=== PATIENT | female | born 1940 | race Caucasian/White ===

== ENCOUNTER 2020-06-05 11:23 | Inpatient (IN) | payer MEDICARE ==
[~2020-06-05] VITALS: Ht 157.5 cm; Wt 64.3 kg
[2020-06-05] MEDS ORDERED: CALTRATE-600 W600 MG PO (12:27)
[2020-06-05] MEDS ORDERED: TYLENOL 500MG500 MG PO (12:27)
[2020-06-05] MEDS ORDERED: ONE-A-DAY ESSE1 EACH PO (12:27)
[2020-06-05] MEDS ORDERED: NATURE'S BLE1000 MCG (12:28)
[2020-06-05] MEDS ORDERED: NORVASC 5MG5 MG/TAB PO (12:28)
[2020-06-05] MEDS ORDERED: GLUCOPHAGE1000 MG PO (12:29)
[2020-06-05] MEDS ORDERED: ZOCOR 20MG20 MG (12:29)
[2020-06-05] MEDS ORDERED: ZESTORETIC 12.51 TA1 PO (12:30)
[2020-06-05] MEDS ORDERED: ATIVAN 0.50.5 MG/TAB (12:31)
[2020-06-05] MEDS ORDERED: ACTOS30 MG PO (12:31)
[2020-06-05] MEDS ORDERED: BETAPACE 80MG80 MG PO (12:31)
[2020-06-05] MEDS ORDERED: ELIQUIS 5MG PO (12:32)
[2020-06-05] MEDS ORDERED: EFFEXOR 75M75 MG/TAB PO (12:32)
[2020-06-05] MEDS ORDERED: AMARYL 2MG T2 MG/TAB PO (12:33)
[2020-06-05 12:52] LABS: INR 1.7 (0.8-3.0); PROTHROMBIN TIME 18.6 SECONDS (9.7-12.8)
[2020-06-05 12:53] LABS: ALANINE AMINOTRANSFERASE 12 U/L (4-34); ALKALINE PHOSPHATASE 59 U/L (50-136); ANION GAP 9 mmol/L (7-16); AST,SGOT 31 U/L (15-37); BILIRUBIN,TOTAL 0.4 mg/dL (0.0-1.0); BLOOD UREA NITROGEN 18 mg/dL (7-17); C-REACTIVE PROTEIN 1.4 mg/dL (0.0-0.9); CALCIUM 9.3 mg/dL (8.4-10.2); CARBON DIOXIDE 26 mmol/L (22-30); CHLORIDE 93 mmol/L (98-107); CREATININE, serum 0.99 (0.52-1.25); GLUCOSE 139 mg/dL (74-106); LIPASE 33 U/L (23-300); POTASSIUM 3.7 mmol/L (3.4-5.0); SODIUM 128 mmol/L (137-145); TOTAL PROTEIN 6.4 gm/dL (6.4-8.2)
[2020-06-05 12:59] LABS: BASO % 0.4 % (0.0-2.0); EOS # 0.2 (0.0-0.7); EOS % 4.2 % (0-4.0); GRAN # 3.1 (1.4-6.5); GRAN % 60.3 % (42.2-75.2); LYMPH # 1.2 (1.2-3.4); MEAN CELL VOLUME 104 fl (80.0-100.0); MEAN CORPUSCULAR HGB CONC 34 g/dl (33.0-37.0); MEAN PLATELET VOLUME 10.4 fl (7.4-10.4); MONO # 0.6 (0.1-0.6); MONO % 10.9 % (1.7-9.3); PLATELET COUNT 120 K/mm3 (130-400); RED BLOOD COUNT 2.52 M/mm3 (4.10-5.30); REDCELL DISTRIBUTION WIDTH-CV 12.4 % (11.5-14.5)
[2020-06-05 13:02] LABS: HEMATOCRIT 26.1 % (37.0-47.0); HEMOGLOBIN 8.8 g/dl (12.5-16.0); MEAN CORPUSCULAR HEMOGLOBIN 35 pg (27.0-31.0)
[2020-06-05 13:05] LABS: TROPONIN-I < 0.012 ng/mL (0.000-0.035)
[2020-06-05 14:00] LABS: COLLECTION METHOD CLEAN CATCH
[2020-06-05 14:11] LABS: MUCOUS Present /lpf; PH 5 (5-8); SQUAMOUS EPITHELIAL 0-2 /hpf; URINE APPEARANCE Hazy; URINE BACTERIA Rare /hpf; URINE BILIRUBIN Negative (NEGATIVE); URINE BLOOD Negative (NEGATIVE); URINE COLOR Yellow; URINE GLUCOSE Negative (NEGATIVE); URINE KETONE Negative (NEGATIVE); URINE LEUKOCYTE ESTERASE 2+ (NEGATIVE); URINE NITRATE Negative (NEGATIVE); URINE PROTEIN(semi-quant) Negative (NEGATIVE); URINE RBC 0-2 /hpf; URINE UROBILINOGEN Negative (NEGATIVE)
[2020-06-05] MEDS ORDERED: ATROVENT I0.2 MG/1 M IH (14:56)
[2020-06-05] MEDS ORDERED: ALBUTEROL0.83 MG/ML IH (14:57)
[2020-06-05] MEDS ORDERED: PERFOROMIS20 MCG/2 M IH (14:57)
[2020-06-05] MEDS ORDERED: PULMICORT0.5 MG/2 M IH (14:58)
--- NOTE | 2020-06-05 17:30 | NUR ---
pt arrived to floor via stretcher. pt is dizzy upon standing, made high fall risk, pt pleasant, aox4 but bad historian. any health question she does not know she says "call my daughter and ask, she'll know". reports new cancer but no chemo in past 7 days and pt cannot say what type of cancer she has. pt has meds in room and says daughter will be her visitor and will take them home. bed alarm set in bed. no other needs.
[2020-06-05 18:10] VITALS: BP 109/33; PULSE 74
[2020-06-05 18:12] VITALS: BP 128/78; PULSE 80
[2020-06-05 18:16] VITALS: BP 119/45; PULSE 91; TEMP 97.7
[2020-06-05 21:00] VITALS: BP 135/42; PULSE 78; TEMP 98.2
--- NOTE | 2020-06-05 21:00 | NUR ---
Patient assessed at this time. Alert and oriented x 4, and able to make needs known. Denies having pain and discomfort at this time. Port to left chest with fluids running per orders. Site is without redness, warmth, swelling, and pain. Dressing to area CDI. Denie having SOB and dyspnea. LS CTA in upper lobes, diminished in lower. HRR. Telemetry in place. Capillary refill less than 3 seconds. Non-tenting skin turgor. BSAx4. Abdomen soft and non-tender. No edema. One person contact assist with transferring to bedside commode. Gait/balance unsteady, but denies dizzyness. Urine clear and yellow. Voices no questions, needs, or concerns at this time. Resting in bed with call light within reach. High fall risk precautions in place.
[2020-06-05 23:36] LABS: FOLATE (FOLIC ACID) >20.0 ng/mL (7.0-31.4)
[2020-06-05 23:51] VITALS: BP 137/49; PULSE 82; TEMP 97.7
[2020-06-06 03:20] VITALS: BP 139/49; PULSE 94; TEMP 97.8
--- NOTE | 2020-06-06 06:40 | NUR ---
Patient has been resting in bed with call light within reach. Continues to wear oxygen at 3 L/min via NC. Patient complained of headache and was given PRN APAP. Voices no questions, needs, or concerns at this time. Resting in bed with call light within reach.
--- NOTE | 2020-06-06 07:00 | NUR ---
Report received from IVIS Ramsey. Pt in bed resting, on phone, denies needs, will continue to monitor.
[2020-06-06 07:20] LABS: BASO % 0.3 % (0.0-2.0); GRAN # 3.4 (1.4-6.5); GRAN % 85.2 % (42.2-75.2); LYMPH # 0.4 (1.2-3.4); LYMPH % 9.7 % (20.0-51.0); MEAN CELL VOLUME 102 fl (80.0-100.0); MEAN CORPUSCULAR HGB CONC 34 g/dl (33.0-37.0); MONO # 0.2 (0.1-0.6); MONO % 4.3 % (1.7-9.3); PLATELET COUNT 136 K/mm3 (130-400); RED BLOOD COUNT 2.59 M/mm3 (4.10-5.30); REDCELL DISTRIBUTION WIDTH-CV 12.2 % (11.5-14.5)
[2020-06-06 07:21] LABS: HEMATOCRIT 26.5 % (37.0-47.0); MEAN CORPUSCULAR HEMOGLOBIN 35 pg (27.0-31.0)
[2020-06-06 07:31] LABS: ANION GAP 10 mmol/L (7-16); BLOOD UREA NITROGEN 15 mg/dL (7-17); CALCIUM 8.8 mg/dL (8.4-10.2); CARBON DIOXIDE 22 mmol/L (22-30); CHLORIDE 101 mmol/L (98-107); CREATININE, serum 0.65 (0.52-1.25); GLUCOSE 185 mg/dL (74-106); MAGNESIUM 2.6 mg/dL (1.6-2.3); POTASSIUM 4.8 mmol/L (3.4-5.0); SODIUM 132 mmol/L (137-145)
[2020-06-06 07:37] LABS: TROPONIN-I < 0.012 ng/mL (0.000-0.035)
[2020-06-06 08:26] VITALS: BP 142/54; PULSE 94; TEMP 97.7
--- NOTE | 2020-06-06 09:29 | NUR ---
Pt doing well, is alert and oriented but forgetful at times. Resting in bed, taking PO well, ordered more for breakfast. Itching where tele and EKG stickers were on chest. PAC to CHADD infusing IVF. Denies pain. Will continue to monitor.
--- NOTE | 2020-06-06 10:14 | NUR ---
Initial visit; Per request by family, Manager Technical Services contacted a Analytical Sciences Director to visit [place]. Father Evelio responded with a planned visit this morning.
--- NOTE | 2020-06-06 11:47 | NUR ---
SW met with the patient to discuss discharge plan. The patient lives in [place] with her youngest daughter, Eli. She states that Eli has Down Syndrome and that her family is checking in on her and looking out for her while she is here. Her other daughter, Josefina (ph#[phone], w.ph#[phone]), lives up the hill from her. She reports needing some assistance with getting in and out of the tub. She states that her daughter, Josefina, and a friend/caregiver, Juan, helps her with this. She has a cane, walker, and home oxygen from [facility] The patient's PCP is Dr. Grace Ordonez and she could not recall what pharmacy she gets her meds at. She states that Josefina would know this. The patient does not have advance directives in EMR, but she states that she does have them completed and that her daughter, Josefina, is her DPOA-HC. The patient plans to return home upon discharge. She states that she receives ton of family and friend support. SW discussed home health services. The patient reports that she had home health in the past and did not like it. She states that her friend/caregiver, Juan, does home exercises with her and helps her. SW then contacted the patient's daughter, Josefina, to review d/c plan. Josefina reports that she has no concerns for SW at this time. She states that she has the contact information for home health, political director, and hospice services if they decide they would want or need any of those services. PT/OT have been ordered. SW to continue to follow.
[2020-06-06 12:28] VITALS: BP 144/69; PULSE 92; TEMP 98.3
[2020-06-06 16:49] VITALS: BP 153/52; PULSE 91; TEMP 98.3
[2020-06-06] MEDS ORDERED: DESYREL 50MG50 MG PO (17:58)
[2020-06-06 19:02] VITALS: BP 134/53; PULSE 87; TEMP 98
--- NOTE | 2020-06-06 19:21 | NUR ---
Pt in bed resting, doing well, daughter was at bedside most of day. Resting in bed, denies needs. Reviewed home meds with daughter, report hgivne to nightshift who will resume care.
--- NOTE | 2020-06-06 20:35 | NUR ---
Resting in bed. Assessment complete. Lungs clear. Heart sounds normal. Bowels active x4. Pulses present throughout. No edema noted. PAC infusing without complications. Denies pain. Given atarax for generalized itching. Denies other needs at this time. Call light in reach.
[2020-06-06 23:13] VITALS: BP 144/51; PULSE 88; TEMP 98.1
--- NOTE | 2020-06-06 23:53 | NUR ---
Resting in bed. Denies needs. Call light in reach.
[2020-06-07 03:05] VITALS: BP 144/57; PULSE 92; TEMP 98.1
--- NOTE | 2020-06-07 03:19 | NUR ---
Resting in bed. Denies needs. Call light in reach.
--- NOTE | 2020-06-07 06:33 | NUR ---
Patient had uneventful night. Resting in bed this AM. Call light in reach.
--- NOTE | 2020-06-07 07:21 | NUR ---
Report given to IVIS Oden
--- NOTE | 2020-06-07 08:50 | NUR ---
PATIENT ASSESSMENT COMPLETED. SHE DENIES PAIN OR OTHER NEEDS AT THIS TIME BLOOD DRAW WAS COLLECTED FROM LEFT CHEST PORT. TOLERATES WELL. FEELS LIKE SHE NEEDS TO HAVE A BOWEL MOVEMENT AND PASSING GAS. MORE GRAPES WERE ORDERED PER HER REQUEST
[2020-06-07 08:54] VITALS: BP 143/44; PULSE 87; TEMP 97.6
[2020-06-07 09:10] LABS: BASO % 0.3 % (0.0-2.0); EOS # 0.1 (0.0-0.7); EOS % 0.7 % (0-4.0); GRAN # 5.8 (1.4-6.5); GRAN % 67.2 % (42.2-75.2); LYMPH # 1.7 (1.2-3.4); MEAN CORPUSCULAR HGB CONC 32 g/dl (33.0-37.0); MEAN PLATELET VOLUME 10.7 fl (7.4-10.4); MONO % 11.5 % (1.7-9.3); PLATELET COUNT 154 K/mm3 (130-400); RED BLOOD COUNT 2.42 M/mm3 (4.10-5.30); REDCELL DISTRIBUTION WIDTH-CV 12.8 % (11.5-14.5)
[2020-06-07 09:22] LABS: CREATININE, serum 0.65 (0.52-1.25); POTASSIUM 3.7 mmol/L (3.4-5.0)
[2020-06-07 09:38] LABS: HEMATOCRIT 26.2 % (37.0-47.0); HEMOGLOBIN 8.4 g/dl (12.5-16.0); MEAN CORPUSCULAR HEMOGLOBIN 35 pg (27.0-31.0)
[2020-06-07 09:41] LABS: MEAN CELL VOLUME 108 fl (80.0-100.0)
[2020-06-07 13:01] VITALS: BP 138/42; PULSE 76; TEMP 97.8
[2020-06-07 16:55] VITALS: BP 162/55; PULSE 65; TEMP 98
[2020-06-07 19:33] VITALS: BP 160/61; PULSE 90; TEMP 97.4
--- NOTE | 2020-06-07 20:10 | NUR ---
Resting in bed. Assessment complete. Right lower lobe diminshed otherwise clear. Heart sounds normal. Bowels active x4. No edema noted. PAC flushed without complications. Denies pain. denies other needs at this time. Wishes for midnight vitals to be skipped. Call light in reach.
[2020-06-07 21:47] VITALS: BP 109/43
--- NOTE | 2020-06-08 00:01 | NUR ---
Resting in bed asleep. Call light in reach. Requested to not be disturbed.
--- NOTE | 2020-06-08 00:30 | NUR ---
Resting in bed asleep. Call light in reach.
[2020-06-08 03:34] VITALS: BP 119/60; PULSE 85; TEMP 97.8
--- NOTE | 2020-06-08 03:49 | NUR ---
Resting in bed. Denies needs. Call light in reach.
--- NOTE | 2020-06-08 06:05 | NUR ---
Patient had uneventful night. Resting in bed this AM. Call light in reach.
[2020-06-08 06:42] LABS: BASO % 0.3 % (0.0-2.0); EOS % 0.5 % (0-4.0); GRAN # 4.3 (1.4-6.5); GRAN % 68.1 % (42.2-75.2); LYMPH # 1.3 (1.2-3.4); LYMPH % 20.2 % (20.0-51.0); MEAN CELL VOLUME 110 fl (80.0-100.0); MEAN CORPUSCULAR HGB CONC 32 g/dl (33.0-37.0); MEAN PLATELET VOLUME 10.3 fl (7.4-10.4); MONO # 0.7 (0.1-0.6); MONO % 10.4 % (1.7-9.3); PLATELET COUNT 123 K/mm3 (130-400); RED BLOOD COUNT 2.13 M/mm3 (4.10-5.30)
[2020-06-08 06:47] LABS: CALCIUM 8.9 mg/dL (8.4-10.2); CREATININE, serum 0.7 (0.52-1.25); POTASSIUM 4.4 mmol/L (3.4-5.0)
[2020-06-08 06:57] LABS: HEMATOCRIT 23.5 % (37.0-47.0); HEMOGLOBIN 7.5 g/dl (12.5-16.0); MEAN CORPUSCULAR HEMOGLOBIN 35 pg (27.0-31.0)
--- NOTE | 2020-06-08 07:28 | NUR ---
Report given to IVIS Greco
[2020-06-08] MEDS ORDERED: DOXYCYCLINE 10100 MG PO (08:16)
[2020-06-08] MEDS ORDERED: PREDNISONE20 MG PO (08:17)
[2020-06-08 08:30] VITALS: BP 172/69; PULSE 96; TEMP 98.2
--- NOTE | 2020-06-08 09:36 | NUR ---
Assessment complete. PAtient was resting on entry but easily awoke to voice. Patient is very excited to go home. Port site is CD&I. Pt will recieved shower prior to departure from facility. No complaints of pain or discomfort from patient. No other needs were expressed. Call light is in reach. Fall precautions are in place.
[2020-06-08 11:27] VITALS: BP 148/58; PULSE 99; TEMP 97.9
--- NOTE | 2020-06-08 13:53 | NUR ---
Patient left the floor at this time. Discharge instructions were discussed. No further questions or concerns.
== END 2020-06-08 13:56 | disposition home or self-care (01) | DRG 190 ==
LOC: COL.ER 11:23 → MEDICAL 14:09
PROVIDERS: Emergency Medicine; Physician Assistant; ADMIT Internal Medicine
DX: J44.1 Chronic obstructive pulmonary disease with (acute) exacerbation (principal); J96.21 Acute and chronic respiratory failure with hypoxia; E87.1 Hypo-osmolality and hyponatremia; N39.0 Urinary tract infection, site not specified; C34.90 Malignant neoplasm of unspecified part of unspecified bronchus or lung; Z66 Do not resuscitate; D50.9 Iron deficiency anemia, unspecified; D69.6 Thrombocytopenia, unspecified; I95.9 Hypotension, unspecified; F32.9 Major depressive disorder, single episode, unspecified; F41.9 Anxiety disorder, unspecified; E86.1 Hypovolemia; E83.42 Hypomagnesemia; I48.91 Unspecified atrial fibrillation; Z85.118 Personal history of other malignant neoplasm of bronchus and lung; Z79.84 Long term (current) use of oral hypoglycemic drugs; Z87.891 Personal history of nicotine dependence; Z90.89 Acquired absence of other organs
CPT/HCPCS: 99222-AI; 99233-AI; 99239; J0696; J1815; J3475; J7030; J7512